=== PATIENT | male | born 1960 | race Caucasian/White ===

== ENCOUNTER → 2016-08-30 | Outpatient (CLI) | payer OTHER ==
[~2016-08-30] MED LIST: CIPRO500 MG PO; COLACE100 MG PO; DITROPAN XL15 MG PO; KEFLEX250 MG PO; LIPITOR40 MG PO; LORTAB 5-325 M1 EACH PO
[2016-08-30 11:29] LABS: INTER. NORMALIZED RATIO 1.1; PROTHROMBIN TIME 11.4 (9.2-11.2); PTT 29.3 (25-32)
== END | disposition home or self-care (01) ==
LOC: OPR 09:51 → EDSTATUS 10:00
PROVIDERS: Nurse Practitioner
PROC: 0D9W30Z Drainage of Peritoneum with Drainage Device, Percutaneous Approach (ICD-10-PCS; principal; 2016-08-30)
DX: R18.8 Other ascites (principal); C61 Malignant neoplasm of prostate
CPT/HCPCS: 77012; 85610; 85730; 87205; 88108; 88305; C1769; J3010

== ENCOUNTER → 2016-09-01 | Outpatient (CLI) | payer OTHER | END | disposition home or self-care (01) | LOC: OPR 07:52 → EDSTATUS 08:00 → OPR 08:00 | PROC: BR2CZZZ Computerized Tomography (CT Scan) of Pelvis (ICD-10-PCS; principal; 2016-09-01) | DX: K65.1 Peritoneal abscess (principal); Z53.8 Procedure and treatment not carried out for other reasons | CPT/HCPCS: 72192 ==

== ENCOUNTER → 2016-09-06 | Outpatient (CLI) | payer OTHER | END | disposition home or self-care (01) | LOC: RAD 14:53 → EDSTATUS 15:00 | DX: Z46.82 Encounter for fitting and adjustment of non-vascular catheter (principal) | CPT/HCPCS: 72192 ==

== ENCOUNTER → 2016-09-17 | Outpatient (CLI) | payer OTHER ==
[~2016-09-17] VITALS: Ht 185.4 cm; Wt 95.3 kg
[~2016-09-17] MED LIST changes: +BACTRIM,SEPT1 TABLET PO
== END | disposition home or self-care (01) ==
LOC: OPR 09:55 → EDSTATUS 10:00
DX: R18.8 Other ascites (principal)
CPT/HCPCS: 10030; C1729; C1769